=== PATIENT | male | born 1955 | race Caucasian/White ===

== ENCOUNTER → 2016-10-05 | Outpatient (CLI) | payer OTHER | END | disposition home or self-care (01) | LOC: LAB 08:02 | DX: R97.20 Elevated prostate specific antigen [PSA] (principal) ==

== ENCOUNTER → 2019-09-03 | Outpatient (CLI) | payer OTHER | END | disposition home or self-care (01) | LOC: US 09:48 | DX: K76.0 Fatty (change of) liver, not elsewhere classified (principal); N28.1 Cyst of kidney, acquired; N40.0 Benign prostatic hyperplasia without lower urinary tract symptoms ==

== ENCOUNTER → 2019-11-02 | Outpatient (CLI) | payer OTHER | END | disposition home or self-care (01) | LOC: NM 07:55 | DX: R10.84 Generalized abdominal pain (principal) ==

== ENCOUNTER 2021-10-06 23:31 | Emergency (ER) | payer OTHER ==
[~2021-10-06] VITALS: Ht 177.8 cm; Wt 81.6 kg
== END 2021-10-07 00:35 | disposition left against medical advice (07) ==
LOC: ED 23:31
DX: R07.9 Chest pain, unspecified (principal); M54.50 Low back pain, unspecified; I10 Essential (primary) hypertension; Z88.0 Allergy status to penicillin; Z88.1 Allergy status to other antibiotic agents; Z88.2 Allergy status to sulfonamides; Z98.890 Other specified postprocedural states

== ENCOUNTER 2022-07-01 21:23 | Emergency (ER) | payer OTHER ==
[~2022-07-01] VITALS: Ht 175.2 cm; Wt 85.7 kg
[2022-07-01] MEDS ORDERED: MAALOX ADVANCE355 M1 JT (22:03)
[2022-07-01] MEDS ORDERED: Percocet 325 MG1 TAB PO (22:04)
== END 2022-07-01 22:21 | disposition home or self-care (01) ==
LOC: ED 21:23
DX: R10.13 Epigastric pain (principal)

== ENCOUNTER 2022-11-28 10:09 | Emergency (ER) | payer OTHER ==
[~2022-11-28 10:09] MED LIST: MAALOX ADVANCE355 M1 JT; Percocet 325 MG1 TAB PO
== END 2022-11-28 12:44 | disposition left against medical advice (07) ==
LOC: ED 10:09
DX: R31.9 Hematuria, unspecified (principal); Z88.0 Allergy status to penicillin; Z88.2 Allergy status to sulfonamides; Z88.1 Allergy status to other antibiotic agents; Z53.21 Procedure and treatment not carried out due to patient leaving prior to being seen by health care provider

== ENCOUNTER → 2023-07-26 | Outpatient (CLI) | payer OTHER ==
[~2023-07-26] MED LIST changes: +ASPIRIN81 M1 PO; +ELIQUIS5 M1 PO; +FLOMAX0.4 MG PO; +LINZESS290 MC1 PO; +LIPITOR20 MG PO; +LOSARTAN POTAS100 M1 PO; +NEXIUM20 M2 PO; +NORVASC10 MG PO; +Regadenoson 0.4 MG/5 ML SYR IV ONE
== END | disposition home or self-care (01) ==
LOC: CARD 00:33
PROVIDERS: ATTEND Internal Medicine Cardiovascular Disease
DX: I48.91 Unspecified atrial fibrillation (principal); R53.81 Other malaise; R94.31 Abnormal electrocardiogram [ECG] [EKG]

== ENCOUNTER 2023-11-05 14:28 | Emergency (ER) | payer OTHER ==
[~2023-11-05] VITALS: Ht 177.8 cm; Wt 81.6 kg
[~2023-11-05 14:28] MED LIST changes: -Regadenoson 0.4 MG/5 ML SYR IV ONE
[2023-11-05] MEDS ORDERED: Bacitracin Zinc 14 GM TUBE T ONE (14:50)
[2023-11-05] MEDS ORDERED: Lidocaine Hydrochloride 2% 10 ML AMP SC ONE (14:50)
[2023-11-05] MEDS ORDERED: Tdap Vaccine 0.5 ML SYR (Adult Vaccine) IM ONE (14:50)
[2023-11-05] MEDS ORDERED: CEPHALEXIN500 M1 PO (16:11)
[2023-11-05] MEDS ORDERED: CEPHALEXIN 500 MG CAP PO ONE (16:15)
== END 2023-11-05 16:35 | disposition home or self-care (01) ==
LOC: ED 14:28
DX: S51.812A Laceration without foreign body of left forearm, initial encounter (principal); I10 Essential (primary) hypertension; I48.91 Unspecified atrial fibrillation; E78.00 Pure hypercholesterolemia, unspecified; Z88.0 Allergy status to penicillin; Z88.1 Allergy status to other antibiotic agents; Z88.2 Allergy status to sulfonamides; Z98.890 Other specified postprocedural states; W26.8XXA Contact with other sharp object(s), not elsewhere classified, initial encounter; Y93.89 Activity, other specified; Y92.89 Other specified places as the place of occurrence of the external cause; Y99.8 Other external cause status

== ENCOUNTER 2023-11-17 19:28 | Emergency (ER) | payer OTHER ==
[~2023-11-17] VITALS: Ht 177.8 cm; Wt 81.6 kg
[~2023-11-17 19:28] MED LIST changes: +CEPHALEXIN500 M1 PO
[2023-11-17] MEDS ORDERED: VIBRAMYCIN100 MG PO (20:21)
[2023-11-17] MEDS ORDERED: Doxycycline Hyclate 100 MG CAP PO ONE (20:25)
== END 2023-11-17 20:38 | disposition home or self-care (01) ==
LOC: ED 19:28
DX: S51.812D Laceration without foreign body of left forearm, subsequent encounter (principal); L03.114 Cellulitis of left upper limb; I10 Essential (primary) hypertension; I48.91 Unspecified atrial fibrillation; E78.00 Pure hypercholesterolemia, unspecified; Z88.0 Allergy status to penicillin; Z88.1 Allergy status to other antibiotic agents; Z88.2 Allergy status to sulfonamides; Z98.890 Other specified postprocedural states; X58.XXXD Exposure to other specified factors, subsequent encounter